=== PATIENT | female | born 1945 | race Caucasian/White ===

== ENCOUNTER 2024-04-14 21:53 | Inpatient (IN) | payer MEDICARE, OTHER ==
[~2024-04-14] VITALS: Ht 157.5 cm; Wt 83.3 kg
[2024-04-14] MEDS: NS 1,000 ML IV ONE (23:25)
[2024-04-14 23:41] LABS: BASO % 0.2 % (0.0-1.0); HEMATOCRIT 36.7 % (36.0-47.0); HEMOGLOBIN 11.1 g/dl (12.0-15.5); LYMPH # 1.1 10^3/uL (1.5-5.0); LYMPH % 6.7 % (24.0-44.0); MEAN CORPUSCULAR HEMOGLOBIN 21.6 pg (27.0-33.0); MEAN CORPUSCULAR HGB CONC 30.2 g/dl (32.0-36.5); MEAN CORPUSCULAR VOLUME 71.3 fl (80.0-96.0); MONO # 0.9 10^3/uL (0.0-0.8); MONO % 5.3 % (2.0-8.0); NEUTROPHILS # 14.4 10^3/uL (1.5-8.5); NEUTROPHILS % 87.1 % (36.0-66.0); PLATELET COUNT, AUTOMATED 266 10^3/uL (150-450); RED BLOOD COUNT 5.15 10^6/uL (4.00-5.40); WHITE BLOOD COUNT 16.6 10^3/uL (4.0-10.0)
[2024-04-15 00:09] LABS: INR 1.22; PARTIAL THROMBOPLASTIN TIME 29.9 SECONDS (24.8-34.2)
[2024-04-15 00:10] LABS: LIPASE 21 U/L (12-53)
[2024-04-15 00:12] LABS: ALBUMIN 3.8 G/DL (3.2-5.2); ALKALINE PHOSPHATASE 80 U/L (46-116); ALT/SGPT 126 U/L (7.0-40); AST/SGOT 279 U/L (<34); BILIRUBIN,DIRECT 0.3 MG/DL (<0.4); BLOOD UREA NITROGEN 18 MG/DL (9-23); CALCIUM LEVEL 9.2 MG/DL (8.3-10.6); CARBON DIOXIDE LEVEL 27 MMOL/L (20-31); CHLORIDE LEVEL 104 MMOL/L (98-107); CK-MB VALUE MASS 116.4 NG/ML (<3.6); CREATININE FOR GFR 0.65 MG/DL (0.55-1.30); GLOMERULAR FILTRATION RATE > 60.0 (>39); GLUCOSE, FASTING 129 MG/DL (74-106); POTASSIUM SERUM 3.3 MMOL/L (3.5-5.1); SODIUM LEVEL 140 MMOL/L (136-145); TOTAL PROTEIN 6.7 G/DL (5.7-8.2)
[2024-04-15 00:30] LABS: CPK CREATINE PHOSPHOKINASE 11412 U/L (34-145); MB/CK RELATIVE INDEX 1.01 (< OR =4)
[2024-04-15 01:23] LABS: CK-MB VALUE MASS 93.6 NG/ML (<3.6)
[2024-04-15 01:48] LABS: MB/CK RELATIVE INDEX 0.94 (< OR =4)
[2024-04-15] MEDS ORDERED: MOM 30ML SUSPENSION UDC PO PRN (04:00)
[2024-04-15] MEDS ORDERED: DEXTROSE 50% 50ML SYRINGE IV PRN (04:10)
[2024-04-15] MEDS ORDERED: GLUCAGON INJ 1MG VIAL SC PRN (04:10)
[2024-04-15] MEDS ORDERED: GLUCOSE 4 GM CHEW PO PRN (04:10)
[2024-04-15] MEDS: LR 1,000 ML IV SCH (04:27)
[2024-04-15] MEDS ORDERED: GLIM2TAB29 PO (05:43)
[2024-04-15] MEDS ORDERED: FLON1SPR NARES (05:43)
[2024-04-15] MEDS ORDERED: MELA3TAB30 PO (05:43)
[2024-04-15] MEDS ORDERED: CLAR10CA3 PO (05:43)
[2024-04-15] MEDS ORDERED: ATOR1TAB19 PO (05:43)
[2024-04-15] MEDS ORDERED: ALBU8.5H INH (05:43)
[2024-04-15] MEDS ORDERED: POTA-151 PO (05:43)
[2024-04-15] MEDS ORDERED: METF500T13 PO (05:43)
[2024-04-15] MEDS ORDERED: NEXI40CA PO (05:43)
[2024-04-15] MEDS ORDERED: AMLO1TAB24 PO (05:43)
[2024-04-15] MEDS ORDERED: ASPI-615 PO (05:43)
[2024-04-15] MEDS ORDERED: SYNT112T2 PO (05:43)
[2024-04-15] MEDS ORDERED: VITA100093 PO (05:43)
[2024-04-15] MEDS ORDERED: ALBUTEROL 90 MCG/ACT 8GM HFA INHALER INH PRN (05:45)
[2024-04-15] MEDS ORDERED: HOME MED LIST COMPLETE! XX SCH (05:45)
[2024-04-15] MEDS: POTASSIUM CHLORIDE 10MEQ SR TABLET PO ONE ×2 (06:03→10:34)
[2024-04-15] MEDS: LEVOTHYROXINE 112MCG TABLET (0.112MG) PO SCH (06:03)
[2024-04-15 07:17] LABS: HEMATOCRIT 34.1 % (36.0-47.0); HEMOGLOBIN 10.3 g/dl (12.0-15.5); MEAN CORPUSCULAR HEMOGLOBIN 21.6 pg (27.0-33.0); MEAN CORPUSCULAR HGB CONC 30.2 g/dl (32.0-36.5); MEAN CORPUSCULAR VOLUME 71.5 fl (80.0-96.0); PLATELET COUNT, AUTOMATED 267 10^3/uL (150-450); RED BLOOD COUNT 4.77 10^6/uL (4.00-5.40); WHITE BLOOD COUNT 14.1 10^3/uL (4.0-10.0)
[2024-04-15 08:05] LABS: ALBUMIN 3.3 G/DL (3.2-5.2); ALKALINE PHOSPHATASE 70 U/L (46-116); ALT/SGPT 112 U/L (7.0-40); AST/SGOT 228 U/L (<34); BILIRUBIN,TOTAL 0.9 MG/DL (0.3-1.2); BLOOD UREA NITROGEN 19 MG/DL (9-23); CALCIUM LEVEL 8.6 MG/DL (8.3-10.6); CARBON DIOXIDE LEVEL 24 MMOL/L (20-31); CHLORIDE LEVEL 108 MMOL/L (98-107); CPK CREATINE PHOSPHOKINASE 6545 U/L (34-145); GLOMERULAR FILTRATION RATE > 60.0 (>39); GLUCOSE, FASTING 111 MG/DL (74-106); POTASSIUM SERUM 2.9 MMOL/L (3.5-5.1); SODIUM LEVEL 140 MMOL/L (136-145); THYROID STIMULATING HORMONE 0.551 uIU/ML (0.55-4.78); TOTAL PROTEIN 5.9 G/DL (5.7-8.2)
[2024-04-15] MEDS ORDERED: FLUTICASONE PROP 0.05% NASAL SPRAY 16 GM (FLONASE) NARES PRN (08:20)
[2024-04-15] MEDS: amLODIPine 5 MG TAB PO SCH (09:00)
[2024-04-15] MEDS: ASPIRIN 81MG ENTERIC TABLET PO SCH (09:00)
[2024-04-15] MEDS: VITAMIN D 1,000 INTERNATIONAL UNITS TABLET PO SCH (10:33)
[2024-04-15] MEDS: ATORVASTATIN 10 MG TAB PO SCH (10:36)
[2024-04-15] MEDS: PANTOPRAZOLE 40MG TAB (PROTONIX) PO SCH (10:37)
[2024-04-15] MEDS: LORATADINE 10 MG TAB PO SCH (10:37)
[2024-04-15] MEDS: INSULIN LISPRO (NovoLOG) PER UNIT SC SCH ×2 (10:38→21:00)
[2024-04-15 12:34] VITALS: BP 147/65; TEMP 98.3; O2SAT 95
[2024-04-15 13:40] LABS: BLOOD UREA NITROGEN 20 MG/DL (9-23); CALCIUM LEVEL 8.7 MG/DL (8.3-10.6); CARBON DIOXIDE LEVEL 26 MMOL/L (20-31); CHLORIDE LEVEL 109 MMOL/L (98-107); CREATININE FOR GFR 0.78 MG/DL (0.55-1.30); GLOMERULAR FILTRATION RATE > 60.0 (>39); GLUCOSE, FASTING 140 MG/DL (74-106); POTASSIUM SERUM 3.5 MMOL/L (3.5-5.1); SODIUM LEVEL 142 MMOL/L (136-145)
[2024-04-15 15:56] VITALS: BP 168/82; TEMP 98.7; O2SAT 98
[2024-04-15 19:29] VITALS: BP 156/86; TEMP 98.2; O2SAT 94
[2024-04-15] MEDS: ACETAMINOPHEN TAB 650MG DOSE (2X325MG) PO PRN (19:55)
[2024-04-15] MEDS: POTASSIUM CHLORIDE 10MEQ SR TABLET PO SCH (21:21)
[2024-04-15] MEDS: LIDOCAINE 5% (LIDODERM) PATCH TD SCH (21:58)
[2024-04-15 23:27] VITALS: BP 150/88; TEMP 98.4; O2SAT 96
[2024-04-16] VITALS (7 sets, daily range): BP systolic 144–178; BP diastolic 74–100; TEMP 97–98.3; O2SAT 95–99
[2024-04-16] MEDS: KETOROLAC 30 MG/ML 1ML VIAL IV ONE (04:17)
[2024-04-16 05:30] LABS: HEMATOCRIT 33.4 % (36.0-47.0); HEMOGLOBIN 10.1 g/dl (12.0-15.5); MEAN CORPUSCULAR HEMOGLOBIN 21.7 pg (27.0-33.0); MEAN CORPUSCULAR HGB CONC 30.2 g/dl (32.0-36.5); MEAN CORPUSCULAR VOLUME 71.7 fl (80.0-96.0); PLATELET COUNT, AUTOMATED 228 10^3/uL (150-450); RED BLOOD COUNT 4.66 10^6/uL (4.00-5.40); WHITE BLOOD COUNT 9.6 10^3/uL (4.0-10.0)
[2024-04-16 05:58] LABS: ALBUMIN 3.1 G/DL (3.2-5.2); ALKALINE PHOSPHATASE 70 U/L (46-116); ALT/SGPT 113 U/L (7.0-40); AST/SGOT 165 U/L (<34); BILIRUBIN,TOTAL 0.6 MG/DL (0.3-1.2); BLOOD UREA NITROGEN 12 MG/DL (9-23); CALCIUM LEVEL 8.1 MG/DL (8.3-10.6); CARBON DIOXIDE LEVEL 26 MMOL/L (20-31); CHLORIDE LEVEL 109 MMOL/L (98-107); GLOMERULAR FILTRATION RATE > 60.0 (>39); GLUCOSE, FASTING 128 MG/DL (74-106); POTASSIUM SERUM 3.4 MMOL/L (3.5-5.1); SODIUM LEVEL 141 MMOL/L (136-145); TOTAL PROTEIN 5.8 G/DL (5.7-8.2)
[2024-04-16 06:10] LABS: PROCALCITONIN 0.22 ng/ml
[2024-04-16] MEDS: MORPHINE 2 MG/ML 1ML VIAL IV ONE (06:19)
[2024-04-16] MEDS: POTASSIUM CHLORIDE 10MEQ SR TABLET PO ONE ×3 (08:03→12:30)
[2024-04-16] MEDS: HEPARIN SOD (PORCINE) 5000UNITS/ML 1ML VIAL/SYRINGE SC SCH (08:05)
[2024-04-16] MEDS: NAPROXEN 250 MG TAB PO SCH (08:07)
[2024-04-16 08:50] LABS: CPK CREATINE PHOSPHOKINASE 2929 U/L (34-145)
[2024-04-16] MEDS ORDERED: POTASSIUM CHLORIDE 10MEQ SR TABLET PO ONE (09:50)
[2024-04-16] MEDS: LIDOCAINE 5% (LIDODERM) PATCH TD SCH (10:35)
[2024-04-16] MEDS: PERCOCET 5MG/325MG TAB PO PRN (12:31)
[2024-04-16] MEDS: traMADol 50 MG TAB PO PRN (16:15)
[2024-04-16] MEDS: RAMELTEON 8 MG TAB (ROZEREM) PO SCH (20:49)
[2024-04-17 03:19] VITALS: BP 156/84; TEMP 97.8; O2SAT 97
[2024-04-17 05:47] LABS: HEMATOCRIT 31.3 % (36.0-47.0); HEMOGLOBIN 9.2 g/dl (12.0-15.5); MEAN CORPUSCULAR HEMOGLOBIN 21.3 pg (27.0-33.0); MEAN CORPUSCULAR HGB CONC 29.4 g/dl (32.0-36.5); MEAN CORPUSCULAR VOLUME 72.5 fl (80.0-96.0); PLATELET COUNT, AUTOMATED 201 10^3/uL (150-450); RED BLOOD COUNT 4.32 10^6/uL (4.00-5.40); WHITE BLOOD COUNT 6.1 10^3/uL (4.0-10.0)
[2024-04-17 06:17] LABS: ALBUMIN 2.9 G/DL (3.2-5.2); ALKALINE PHOSPHATASE 56 U/L (46-116); ALT/SGPT 112 U/L (7.0-40); AST/SGOT 149 U/L (<34); BILIRUBIN,TOTAL 0.4 MG/DL (0.3-1.2); BLOOD UREA NITROGEN 14 MG/DL (9-23); CALCIUM LEVEL 8.2 MG/DL (8.3-10.6); CARBON DIOXIDE LEVEL 26 MMOL/L (20-31); CHLORIDE LEVEL 110 MMOL/L (98-107); CREATININE FOR GFR 0.56 MG/DL (0.55-1.30); GLOMERULAR FILTRATION RATE > 60.0 (>39); GLUCOSE, FASTING 127 MG/DL (74-106); SODIUM LEVEL 141 MMOL/L (136-145); TOTAL PROTEIN 5.6 G/DL (5.7-8.2)
[2024-04-17 07:51] VITALS: BP 178/82; TEMP 98.4; O2SAT 97
[2024-04-17] MEDS ORDERED: MIRALAX *UNIT DOSE* 17GM PACKET PO PRN (08:10)
[2024-04-17] MEDS: DOCUSATE SODIUM 100MG CAPSULE PO SCH (08:28)
[2024-04-17] MEDS: MIRALAX *UNIT DOSE* 17GM PACKET PO SCH (08:28)
[2024-04-17 08:30] LABS: CPK CREATINE PHOSPHOKINASE 2009 U/L (34-145)
[2024-04-17] MEDS: FUROSEMIDE 40MG/4ML VIAL IV ONE (11:40)
[2024-04-17 12:00] VITALS: BP 174/84; TEMP 97.6; O2SAT 96
[2024-04-17 16:00] VITALS: BP 139/67; TEMP 98; O2SAT 94
[2024-04-17] MEDS ORDERED: PANTOPRAZOLE 40MG TAB (PROTONIX) PO SCH (19:55)
[2024-04-17 20:00] VITALS: BP_SYST 164; BP_SYST 173; BP_DIAS 80; BP_DIAS 82; TEMP 97.8; O2SAT 95
[2024-04-18] VITALS (11 sets, daily range): BP systolic 131–193; BP diastolic 64–90; TEMP 97.6–102.3; O2SAT 95–99
[2024-04-18] MEDS: **hydrALAZINE** 10 MG TAB PO PRN (04:36)
[2024-04-18 07:42] LABS: HEMATOCRIT 34.7 % (36.0-47.0); HEMOGLOBIN 10.6 g/dl (12.0-15.5); MEAN CORPUSCULAR HEMOGLOBIN 21.9 pg (27.0-33.0); MEAN CORPUSCULAR HGB CONC 30.5 g/dl (32.0-36.5); MEAN CORPUSCULAR VOLUME 71.8 fl (80.0-96.0); PLATELET COUNT, AUTOMATED 210 10^3/uL (150-450); RED BLOOD COUNT 4.83 10^6/uL (4.00-5.40); WHITE BLOOD COUNT 6.3 10^3/uL (4.0-10.0)
[2024-04-18 07:54] LABS: CK-MB VALUE MASS 2.8 NG/ML (<3.6)
[2024-04-18] MEDS: FUROSEMIDE 20MG/2ML VIAL IV ONE (07:54)
[2024-04-18 07:56] LABS: CPK CREATINE PHOSPHOKINASE 1169 U/L (34-145); MB/CK RELATIVE INDEX 0.23 (< OR =4)
[2024-04-18 07:59] LABS: ALBUMIN 3.3 G/DL (3.2-5.2); ALKALINE PHOSPHATASE 67 U/L (46-116); ALT/SGPT 120 U/L (7.0-40); AST/SGOT 109 U/L (<34); BILIRUBIN,TOTAL 0.5 MG/DL (0.3-1.2); BLOOD UREA NITROGEN 13 MG/DL (9-23); CALCIUM LEVEL 8.7 MG/DL (8.3-10.6); CARBON DIOXIDE LEVEL 30 MMOL/L (20-31); CHLORIDE LEVEL 106 MMOL/L (98-107); CREATININE FOR GFR 0.58 MG/DL (0.55-1.30); GLOMERULAR FILTRATION RATE > 60.0 (>39); GLUCOSE, FASTING 138 MG/DL (74-106); POTASSIUM SERUM 3.7 MMOL/L (3.5-5.1); SODIUM LEVEL 139 MMOL/L (136-145); TOTAL PROTEIN 6.2 G/DL (5.7-8.2)
[2024-04-18 10:53] LABS: HEPATITIS B SURFACE ANTIGEN NEGATIVE (NEGATIVE)
[2024-04-18 11:15] LABS: HEPATITIS B CORE ANTIBODY IGM NEGATIVE (NEGATIVE); HEPATITIS C VIRUS ABY INDEX 0.04 INDEX (<0.8)
[2024-04-19 04:00] VITALS: BP 161/70; TEMP 98.8; O2SAT 96
[2024-04-19 05:58] LABS: HEMATOCRIT 32.7 % (36.0-47.0); HEMOGLOBIN 9.9 g/dl (12.0-15.5); MEAN CORPUSCULAR HEMOGLOBIN 21.8 pg (27.0-33.0); MEAN CORPUSCULAR HGB CONC 30.3 g/dl (32.0-36.5); MEAN CORPUSCULAR VOLUME 71.9 fl (80.0-96.0); PLATELET COUNT, AUTOMATED 181 10^3/uL (150-450); RED BLOOD COUNT 4.55 10^6/uL (4.00-5.40); WHITE BLOOD COUNT 3.7 10^3/uL (4.0-10.0)
[2024-04-19 06:26] LABS: ALBUMIN 3.2 G/DL (3.2-5.2); ALKALINE PHOSPHATASE 71 U/L (46-116); ALT/SGPT 129 U/L (7.0-40); AST/SGOT 92 U/L (<34); BILIRUBIN,TOTAL 0.6 MG/DL (0.3-1.2); BLOOD UREA NITROGEN 17 MG/DL (9-23); CALCIUM LEVEL 8.7 MG/DL (8.3-10.6); CARBON DIOXIDE LEVEL 28 MMOL/L (20-31); CHLORIDE LEVEL 105 MMOL/L (98-107); CREATININE FOR GFR 0.63 MG/DL (0.55-1.30); GLOMERULAR FILTRATION RATE > 60.0 (>39); GLUCOSE, FASTING 148 MG/DL (74-106); POTASSIUM SERUM 3.6 MMOL/L (3.5-5.1); SODIUM LEVEL 141 MMOL/L (136-145); TOTAL PROTEIN 6.3 G/DL (5.7-8.2)
[2024-04-19 07:47] VITALS: BP 190/88; TEMP 98.1; O2SAT 88
[2024-04-19 08:06] VITALS: BP 190/88
[2024-04-19 09:10] VITALS: BP 160/72
[2024-04-19] MEDS ORDERED: SENN1TAB85 PO (11:13)
[2024-04-19] MEDS ORDERED: NAPR-885 PO (11:13)
[2024-04-19] MEDS ORDERED: AMLO1TAB24 PO (11:13)
[2024-04-19] MEDS ORDERED: OXYC-517 PO (11:13)
[2024-04-19] MEDS ORDERED: ACET-897 PO (11:13)
[2024-04-19] MEDS ORDERED: LISI5TAB11 PO (11:13)
[2024-04-19 11:44] VITALS: BP 130/63; TEMP 98; O2SAT 97
== END 2024-04-19 14:54 | disposition home or self-care (01) | DRG 558 ==
LOC: EDBD 21:53 → M ED 21:53 → M ED INP 04-15 04:00 → M PCU 04-15 12:19
PROVIDERS: ADMIT Internal Medicine; ATTEND Internal Medicine
DX: M62.82 Rhabdomyolysis (principal); E11.9 Type 2 diabetes mellitus without complications; M19.90 Unspecified osteoarthritis, unspecified site; I11.0 Hypertensive heart disease with heart failure; E78.5 Hyperlipidemia, unspecified; R26.89 Other abnormalities of gait and mobility; I50.9 Heart failure, unspecified; E55.9 Vitamin D deficiency, unspecified; E87.6 Hypokalemia; R74.01 Elevation of levels of liver transaminase levels; K21.9 Gastro-esophageal reflux disease without esophagitis; J45.909 Unspecified asthma, uncomplicated; E03.9 Hypothyroidism, unspecified; S40.012A Contusion of left shoulder, initial encounter; W19.XXXA Unspecified fall, initial encounter; Y92.009 Unspecified place in unspecified non-institutional (private) residence as the place of occurrence of the external cause; Z86.73 Personal history of transient ischemic attack (TIA), and cerebral infarction without residual deficits; Y93.K9 Activity, other involving animal care; Z96.643 Presence of artificial hip joint, bilateral; Z90.79 Acquired absence of other genital organ(s); Z87.891 Personal history of nicotine dependence; Z79.890 Hormone replacement therapy; Z79.899 Other long term (current) drug therapy; Z91.013 Allergy to seafood

== ENCOUNTER → 2024-11-14 | Outpatient (CLI) | payer MEDICARE, OTHER ==
[~2024-11-14] MED LIST: ACET-897 PO; ALBU8.5H INH; AMLO1TAB24 PO; ASPI-615 PO; ATOR1TAB19 PO; CLAR10CA3 PO; FLON1SPR NARES; GLIM2TAB29 PO; LISI5TAB11 PO; MELA3TAB30 PO; METF500T13 PO; NAPR-885 PO; NEXI40CA PO; OXYC-517 PO; POTA-151 PO; SENN1TAB85 PO; SYNT112T2 PO; VITA100093 PO
== END ==
LOC: M SOG 08:06
PROVIDERS: ATTEND Orthopaedic Surgery
DX: M25.551 Pain in right hip (principal); M25.552 Pain in left hip; Z96.643 Presence of artificial hip joint, bilateral

== ENCOUNTER 2025-06-27 20:00 | Observation (INO) | payer MEDICARE ==
[~2025-06-27] VITALS: Ht 157.5 cm; Wt 80.8 kg
[~2025-06-27 20:00] MED LIST changes: -ATOR40TA75 PO; -CLOP75TA99 PO; -DONE10TA90 PO; -DULO30CA9 PO; -FAMO20TA PO; -FERR1TAB8 PO; -FIBECHW4 PO; -LISI20TA33 PO; -MAGN64TASA PO; -NORV5TAB PO; -OXYB5TAB14 PO
[2025-06-27] MEDS ORDERED: ISOVUE-370 76% 100 ML VIAL As Ordered ONE (21:29)
[2025-06-27 21:45] VITALS: BP 217/98; O2SAT 98
[2025-06-27 22:04] LABS: BASO # 0.0 10^3/uL (0.0-0.2); BASO % 0.4 % (0.0-1.0); EOS # 0.1 10^3/uL (0.0-0.5); EOS % 1.5 % (0.0-3.0); LYMPH # 1.5 10^3/uL (1.5-5.0); LYMPH % 21.8 % (24.0-44.0); MONO # 0.5 10^3/uL (0.0-0.8); MONO % 7.1 % (2.0-8.0); NEUTROPHILS # 4.7 10^3/uL (1.5-8.5); NEUTROPHILS % 69.1 % (36.0-66.0); PLATELET COUNT, AUTOMATED 236 10^3/uL (150-450)
[2025-06-27 22:18] LABS: INR 0.98
[2025-06-27 22:24] LABS: FREE T4 1.38 NG/DL (0.89-1.76)
[2025-06-27] MEDS ORDERED: DONE10TA90 PO (22:49)
[2025-06-27] MEDS ORDERED: FAMO20TA PO (22:49)
[2025-06-27] MEDS ORDERED: FERR1TAB8 PO (22:49)
[2025-06-27] MEDS ORDERED: FIBECHW4 PO (22:49)
[2025-06-27] MEDS ORDERED: LISI20TA33 PO (22:50)
[2025-06-27] MEDS ORDERED: DULO30CA9 PO (22:52)
[2025-06-27] MEDS ORDERED: OXYB5TAB14 PO (22:52)
[2025-06-27] MEDS ORDERED: MAGN64TASA PO (22:52)
[2025-06-27] MEDS ORDERED: HOME MED LIST COMPLETE! XX SCH (22:55)
[2025-06-27] MEDS: hydrALAZINE 20 MG/ML 1 ML VIAL IV STA (23:03)
[2025-06-28] VITALS (8 sets, daily range): BP systolic 165–174; BP diastolic 80–89; TEMP 98.2; O2SAT 97–99
[2025-06-28] MEDS: LEVOTHYROXINE 112 MCG TABLET (0.112 MG) PO SCH (06:12)
[2025-06-28 06:58] LABS: BASO # 0.0 10^3/uL (0.0-0.2); BASO % 0.3 % (0.0-1.0); EOS # 0.2 10^3/uL (0.0-0.5); EOS % 2.6 % (0.0-3.0); LYMPH # 1.6 10^3/uL (1.5-5.0); LYMPH % 28.0 % (24.0-44.0); MONO # 0.5 10^3/uL (0.0-0.8); MONO % 8.0 % (2.0-8.0); NEUTROPHILS # 3.5 10^3/uL (1.5-8.5); NEUTROPHILS % 60.9 % (36.0-66.0); PLATELET COUNT, AUTOMATED 198 10^3/uL (150-450)
[2025-06-28 07:23] LABS: ALT/SGPT 23.0 U/L (7.0-40); AST/SGOT 16.0 U/L (<34); CALCIUM LEVEL 8.9 MG/DL (8.3-10.6); CARBON DIOXIDE LEVEL 28.0 MMOL/L (20-31); CHLORIDE LEVEL 106.0 MMOL/L (98-107); CHOLESTEROL LEVEL 170.0 MG/DL (<200); CHOLESTEROL RISK RATIO 4.84 (<5); CREATININE FOR GFR 0.67 MG/DL (0.55-1.30); GLOMERULAR FILTRATION RATE 90.0 (>39); LDL CHOLESTEROL 109.5 MG/DL (<100); NON-HDL-C 134.9 MG/DL; POTASSIUM SERUM 3.8 MMOL/L (3.5-5.1); SODIUM LEVEL 145.0 MMOL/L (136-145); TRIGLYCERIDES LEVEL 127.0 MG/DL (<150)
[2025-06-28 08:03] LABS: ESTIMATED AVERAGE GLUCOSE 226.0 MG/DL (60-110)
[2025-06-28] MEDS ORDERED: GLUCOSE 4 GM CHEW PO PRN ×2 (08:25→10:25)
[2025-06-28] MEDS ORDERED: GLUCAGON INJ 1 MG VIAL SC PRN ×2 (08:25→10:25)
[2025-06-28] MEDS ORDERED: DEXTROSE 50% 50 ML SYRINGE IV PRN ×2 (08:25→10:25)
[2025-06-28] MEDS: CLOPIDOGREL 75 MG TAB PO SCH (09:19)
[2025-06-28] MEDS: ATORVASTATIN 20 MG TAB PO SCH (09:19)
[2025-06-28] MEDS: ENOXAPARIN 40 MG/0.4 ML SYRINGE (J1650 PER 10MG) SC SCH (09:19)
[2025-06-28] MEDS: ASPIRIN 81 MG ENTERIC TABLET PO SCH (09:20)
[2025-06-28] MEDS ORDERED: INSULIN LISPRO (NovoLOG) PER UNIT SC SCH (12:00)
[2025-06-28] MEDS: INSULIN LISPRO (NovoLOG) PER UNIT SC SCH (13:24)
[2025-06-28] MEDS: amLODIPine 5 MG TAB PO ONE (15:37)
[2025-06-28] MEDS: DONEPEZIL 5 MG TAB PO SCH (21:01)
[2025-06-28] MEDS: ACETAMINOPHEN 325 MG TAB PO PRN (21:03)
[2025-06-29 03:55] VITALS: BP 142/97; TEMP 98.8; O2SAT 95
[2025-06-29 08:45] VITALS: BP 163/102; TEMP 97.9; O2SAT 96
[2025-06-29] MEDS: amLODIPine 5 MG TAB PO SCH (08:56)
[2025-06-29 12:00] VITALS: BP 168/84; TEMP 98.1; O2SAT 95
[2025-06-29 21:01] VITALS: BP 169/83; TEMP 98.4; O2SAT 95
[2025-06-30 03:13] VITALS: BP 168/62; TEMP 98.1; O2SAT 95
[2025-06-30 08:53] VITALS: BP 156/90
[2025-06-30] MEDS ORDERED: ATOR40TA75 PO (10:38)
[2025-06-30] MEDS ORDERED: CLOP75TA99 PO (10:38)
[2025-06-30] MEDS ORDERED: NORV5TAB PO (10:40)
== END 2025-06-30 15:26 | disposition home health service (06) ==
LOC: M ED 20:00 → M ED INP 20:01 → EDBEDREQSVC 23:03 → M MSPAV 06-28 18:44
PROVIDERS: ADMIT Student in an Organized Health Care Education/Training Program; ATTEND Internal Medicine
DX: I63.81 Other cerebral infarction due to occlusion or stenosis of small artery (principal); G30.1 Alzheimer's disease with late onset; F02.818 Dementia in other diseases classified elsewhere, unspecified severity, with other behavioral disturbance; E11.9 Type 2 diabetes mellitus without complications; I10 Essential (primary) hypertension; E78.5 Hyperlipidemia, unspecified; K21.9 Gastro-esophageal reflux disease without esophagitis; E03.9 Hypothyroidism, unspecified; Z79.899 Other long term (current) drug therapy; Z79.01 Long term (current) use of anticoagulants; Z79.82 Long term (current) use of aspirin; Z79.84 Long term (current) use of oral hypoglycemic drugs
CPT/HCPCS: 36415; 70450; 70496; 70498; 70551; 71045; 80047; 80053; 80061; 83036; 84439; 84443; 85025; 85610; 85730; 92610; 93005; 93041; 93306; 94760; 96372; 96374; 97112; 97116; 97161; 97165; 97535; 99285; G0378; J0360; J1650; J1815; Q9967

== ENCOUNTER → 2025-06-27 | Outpatient (CLI) | payer MEDICARE ==
[~2025-06-27] MED LIST changes: +ATOR40TA75 PO; +CLOP75TA99 PO; +DONE10TA90 PO; +DULO30CA9 PO; +FAMO20TA PO; +FERR1TAB8 PO; +FIBECHW4 PO; +LISI20TA33 PO; +MAGN64TASA PO; +NORV5TAB PO; +OXYB5TAB14 PO
== END ==
LOC: M PLAIMG 13:24
PROVIDERS: ATTEND Student in an Organized Health Care Education/Training Program
DX: G30.1 Alzheimer's disease with late onset (principal); F02.818 Dementia in other diseases classified elsewhere, unspecified severity, with other behavioral disturbance

== ENCOUNTER → 2025-06-30 | Outpatient (CLI) | payer MEDICARE ==
[~2025-06-30] MED LIST changes: +ATOR40TA75 PO; +CLOP75TA99 PO; +DONE10TA90 PO; +DULO30CA9 PO; +FAMO20TA PO; +FERR1TAB8 PO; +FIBECHW4 PO; +LISI20TA33 PO; +MAGN64TASA PO; +NORV5TAB PO; +OXYB5TAB14 PO
== END ==
LOC: M EKG 15:44
PROVIDERS: ATTEND Internal Medicine
DX: Z86.73 Personal history of transient ischemic attack (TIA), and cerebral infarction without residual deficits (principal); Z53.9 Procedure and treatment not carried out, unspecified reason